=== PATIENT | male | born 1975 | race Caucasian/White ===

== ENCOUNTER 2024-01-04 02:04 | Emergency (ER) | payer BC, SELFPAY ==
[2024-01-04 02:07] VITALS: BP 111/70; BMI 32.7
--- NOTE | 2024-01-04 02:32 | ED.GENMED ---
History of Present Illness
<Jerry Silvestre [facility] - Last Filed: 01/04/24 04:49>
General
Chief Complaint: Fainting/Passed Out
Time Seen by Provider: 01/04/24 02:14
History of Present Illness
History of Present Illness:
Pt is a 48 y/o male presenting after passing out 1.5 hours ago. He states he was in a 95 degree pool for 4 hours, had around 8-10 drinks, took a marijuana edible, smoked a marijuana vape, and took mushroom capsules during this time. He states he
started to feel tired and lightheaded and lowered himself to the ground and passed out. He states he does not remember passing out but his friends told him he passed out for around 20 seconds, came to, and passed out again. He denies hitting his
head or any seizure like activity. He states he still feels light headed. He denies any vision changes, chest pain, palpitations, shortness of breath, abdominal pain, nausea, vomiting, diarrhea.
Phy Exam
<Jerry Silvestre [facility] - Last Filed: 01/04/24 04:49>
Physical Exam
Physical Exam:
GENERAL: Alert , in no apparent distress
EYE: pupils equal and reactive
Throat: Airway intact, no exudates
NECK: Supple, no significant adenopathy.
CARDIAC: Regular rate and rhythm .
LUNGS: Clear breath sounds bilaterally, no acute respiratory distress, no wheezes/rales/rhonchi
ABDOMEN: Soft, nondistended, nontender, no cvat
NEUROLOGICAL: Alert and oriented, no focal neuro deficits
SKIN: Warm and dry, skin intact.
MUSCULOSKELETAL: No edema, well perfused.
PSYCH: Normal and appropriate interaction.
Course
<[facility] - Last Filed: 01/04/24 04:49>
Orders/Labs/Results
Orders:
Orders
01/04/24 02:06
EKG [Electrocardiogram (*1)] Urgent
Reason for Study: Syncope
EKG- Treatment ONCE
01/04/24 02:59
0.9% Sodium Chloride 500 ml [Nss] 500 ml IV BOLUS
Vital Signs
Initial and Last Documented VS:
Initial Vital Signs
Temp Pulse Resp BP Pulse Ox
97.9 F 76 16 111/70 95
01/04/24 02:07 01/04/24 02:07 01/04/24 02:07 01/04/24 02:07 01/04/24 02:07
Last Documented Vital Signs
Temp Pulse Resp BP Pulse Ox
97.9 F 72 20 112/70 91
01/04/24 02:07 01/04/24 03:15 01/04/24 03:15 01/04/24 03:06 01/04/24 03:15
Dioniciolt;Mann Morel DO - Last Filed: 01/04/24 04:07>
Orders/Labs/Results
Orders:
Orders
01/04/24 02:06
EKG [Electrocardiogram (*1)] Urgent
Reason for Study: Syncope
EKG- Treatment ONCE
01/04/24 02:59
0.9% Sodium Chloride 500 ml [Nss] 500 ml IV BOLUS
Vital Signs
Initial and Last Documented VS:
Initial Vital Signs
Temp Pulse Resp BP Pulse Ox
97.9 F 76 16 111/70 95
01/04/24 02:07 01/04/24 02:07 01/04/24 02:07 01/04/24 02:07 01/04/24 02:07
Last Documented Vital Signs
Temp Pulse Resp BP Pulse Ox
97.9 F 72 20 112/70 91
01/04/24 02:07 01/04/24 03:15 01/04/24 03:15 01/04/24 03:06 01/04/24 03:15
<LM Martin - Last Filed: 01/04/24 04:49>
*Critical Care Note
Total Time (30-74mins, 75-104mins- exclusive of procedures): Not Applicable
ED Attending Note
<LM Martin - Last Filed: 01/04/24 04:49>
-
Portions of this chart may have been created with voice recognition software.� Occasional wrong word or��sound alike� substitutions may have occurred due to the inherent limitations of voice recognition software.
<Mann Mroel DO - Last Filed: 01/04/24 04:07>
ED Attending Note
Patient seen and examined by attending physician: Yes
I performed the substantive portion of visit, reviewed & personally made and approve the management plan that is documented in note by myself or SOBEIDA.: Yes
ED Attending Note:
I agree with Jerry's note
Patient suffered a syncopal episode this evening after a night of festivities involving alcohol, THC edibles, shrooms and an extended period of time in a hot tub.
On arrival to the emergency room the patient is awake and alert. He was noted to be hypotensive in the ambulance.
General: Awake, Alert, Oriented X3. No acute distress.
Vitals: unremarkable
Head: Atraumatic
Eyes: Pupils equal, EOMI
Throat: Airway intact, no exudates
Neck: Trachea midline
Lungs: Clear and equal b/l
Heart: Regular rate, no murmurs
Abd: Soft, Nontender, No pulsatile mass
Neuro: Nonfocal
Skin: Warm, dry, no rash
Extremities: pulses equal b/l, no edema
EKG: Normal sinus rhythm without any ischemic changes.
Patient had received a liter of normal saline. He feels better but still but dizzy. Will give another 500 cc bolus but anticipate discharge.
Discharge Plan
Departure
Patient Disposition: Home (Routine Discharge)
Date of Disposition: 01/04/24
Time of Disposition: 04:05
Patient with high blood pressure during this ER visit?: No
Condition: Good
Discharge Problem:
Syncope
Instructions: Syncope (Fainting) (DC)
Prescriptions:
No Action
No Current Medications
0
Referrals:
Luis Cho MD [Other]
Interventions
Interventions:
*Risk Screen - Suicide Last Done: 01/04/24 02:07
*General Assessment Last Done: 01/04/24 02:07
*Neglect/Abuse Screening Last Done: 01/04/24 02:07
ED- Fall Risk Assessment Last Done: 01/04/24 04:12
*ED COVID-19 Vaccine History Last Done: 01/04/24 02:07
*Nursing Disposition Last Done: 01/04/24 04:12
ED- Cardiac Assessment Last Done: 01/04/24 02:14
ED- Neurological Assessment Last Done: 01/04/24 02:14
Discharge Date and Time
Discharge Date/Time: 01/04/24 04:12
Print Language: AMHARIC
[2024-01-04 03:06] VITALS: BP 112/70
[2024-01-04] MEDS: NSS 500 IV (03:12)
== END 2024-01-04 04:12 | disposition home or self-care (01) ==
LOC: EMR 02:04
PROVIDERS: EMERGENCY PHYSICIAN Emergency Medicine
DX: R55 Syncope and collapse (principal); F17.290 Nicotine dependence, other tobacco product, uncomplicated
CPT/HCPCS: 99283; 96360; 93005